=== PATIENT | female | born 1975 | race Caucasian/White ===

== ENCOUNTER 2021-09-17 13:18 | Emergency (ER) | payer BC ==
[~2021-09-17 13:18] MED LIST: BENTYL 10MG CAP10 MG PO; CIPRO500 MG PO; FLAGYL500 MG PO; ZOFRAN4 MG PO
[2021-09-17 16:36] LABS: HEMOGLOBIN 13.4 gm/dl (12.3-15.3); RED BLOOD COUNT 4.49 M/UL (4.00-5.10); WHITE BLOOD COUNT 8.9 K/UL (4.5-11.0)
[2021-09-17 17:03] LABS: BUN/CREATININE RATIO 13 (0-10)
[2021-09-17] MEDS ORDERED: TORADOL 10 MG T10 MG PO (20:11)
[2021-09-17] MEDS ORDERED: AMOX TR-K CLV1 EAC4 PO (20:11)
[2021-09-17] MEDS ORDERED: ONDANSETRON ODT4 MG SL (20:11)
== END 2021-09-17 20:52 | disposition home or self-care (01) ==
LOC: ER1 13:18
PROVIDERS: Physician Assistant
DX: R10.32 Left lower quadrant pain (principal); R19.7 Diarrhea, unspecified; Z87.19 Personal history of other diseases of the digestive system
CPT/HCPCS: 80053; 81001; 85025; 96374; 99284; J1885; Q9965